=== PATIENT | male | born 1970 | race Caucasian/White ===

== ENCOUNTER 2024-03-09 09:17 | Emergency (ER) | payer MEDICARE, OTHER ==
[~2024-03-09] VITALS: Ht 175.3 cm; Wt 92.5 kg
[2024-03-09] MEDS ORDERED: NALO4SPR BNOSTRILS (09:26)
[2024-03-09] MEDS ORDERED: HYDROCODONE/APAP 10/325MG TABLET ONE (09:30)
[2024-03-09] MEDS ORDERED: ONDANSETRON 4 MG TAB.RAPDIS ONE (09:30)
[2024-03-09] MEDS: HYDROCODONE/APAP 10/325MG TABLET PO ONE (09:34)
[2024-03-09] MEDS: ONDANSETRON 4 MG TAB.RAPDIS SL ONE (09:34)
[2024-03-09 11:46] VITALS: BP 127/60; TEMP 98.6; O2SAT 99
== END 2024-03-09 11:46 ==
LOC: ER 09:31
DX: G89.29 Other chronic pain (principal); M25.512 Pain in left shoulder; F20.9 Schizophrenia, unspecified; K21.9 Gastro-esophageal reflux disease without esophagitis
CPT/HCPCS: Q0162